=== PATIENT | male | born 1945 | race Caucasian/White ===

== ENCOUNTER 2017-04-07 15:12 | Inpatient (IN) | payer OTHER, BC ==
[~2017-04-07] VITALS: Ht 170.2 cm; Wt 89.3 kg
[~2017-04-07 15:12] MED LIST: ALDACTONE100 MG PO; AMIODARONE HCL200 MG PO; AMOXICILLIN500 MG PO; ATORVASTATIN CA40 MG PO; AVIDOXY100 MG PO; BACTRIM,SEPT1 TABLET PO; CONSTULOSE10 GM/15 M PO; FUROSEMIDE20 MG PO; FUROSEMIDE40 MG PO; GENERLAC10 GM/15 M PO; HYDROCORTISONE30 G2 TP; K-DUR20 MEQ PO; LASIX20 MG PO; LASIX40 MG PO; LEVOFLOXACIN750 MG PO; LEVOTHYROXINE75 MCG PO; LOPRESSOR25 MG PO; METOPROLOL SUCC50 MG PO; MIDODRINE HCL5 MG PO; NADOLOL20 MG PO; OXAYDO5 MG PO; PANTOPRAZOLE SO40 MG PO; SPIRONOLACTONE25 MG PO; ST. JOSEPH ASPI81 MG PO; VITAMIN D32000 UNI1 PO; VITAMIN E400 UNIT PO; XIFAXAN550 MG PO; ZINC30 M1 PO
[2017-04-07 16:09] LABS: ALBUMIN 3.2 g/dL (3.2-4.8)
[2017-04-07 16:10] LABS: CHLORIDE 116 mEq/L (99-109); SODIUM 137 mEq/L (136-147)
[2017-04-07 16:12] LABS: GLUCOSE 104 mg/dL (70-99); TOTAL PROTEIN 6.2 g/dL (6.4-8.3)
[2017-04-07 16:14] LABS: TOTAL BILIRUBIN 1.2 mg/dL (0.0-1.0)
[2017-04-07 16:16] LABS: ALKALINE PHOSPHATASE 177 IU/L (3-129); CREATININE 1.9 mg/dL (0.6-1.3); GFR ESTIMATE (CALCULATED) 37 mL/min/ (58.99-99999)
[2017-04-07 16:17] LABS: UREA NITROGEN (BUN) 45 mg/dL (9-23)
[2017-04-07 16:18] LABS: AST (GOT) 46 IU/L (2-34)
[2017-04-07 16:19] LABS: ALT (GPT) 46 IU/L (3-49); POTASSIUM 6.5 mEq/L (3.7-5.4)
[2017-04-07 16:50] LABS: APPEARANCE CLEAR ((CLEAR)); BILIRUBIN NEGATIVE; BLOOD NEGATIVE; COLOR YELLOW ((YELLOW)); GLUCOSE (STRIP) NEGATIVE; KETONES NEGATIVE; LEUKOCYTES NEGATIVE; NITRITE NEGATIVE; PROTEIN (STRIP) NEGATIVE; SPECIFIC GRAVITY 1.013 (1.000-1.030); UCUL ADDED? NO; UROBILINOGEN 0.2 MG/DL (0.2-1.0)
[2017-04-07] MEDS ORDERED: VITAMIN B12 100MCG PO (17:27)
[2017-04-07] MEDS ORDERED: DIOVAN80 MG PO (17:28)
[2017-04-07] MEDS ORDERED: TRIAMCINOLONE A15 GM TP (17:28)
[2017-04-07 19:17] LABS: URIC ACID 8.7 mg/dL (3.1-9.2)
[2017-04-07 19:51] LABS: ALBUMIN 2.9 g/dL (3.2-4.8)
[2017-04-07 19:52] LABS: CHLORIDE 118 mEq/L (99-109); POTASSIUM 5.7 mEq/L (3.7-5.4); SODIUM 138 mEq/L (136-147)
[2017-04-07 19:53] LABS: GLUCOSE 88 mg/dL (70-99)
[2017-04-07 19:57] LABS: CREATININE 1.8 mg/dL (0.6-1.3); GFR ESTIMATE (CALCULATED) 40 mL/min/ (58.99-99999); PHOSPHORUS 3.5 mg/dL (2.5-4.9)
[2017-04-07 19:58] LABS: UREA NITROGEN (BUN) 43 mg/dL (9-23)
[2017-04-07 20:40] LABS: BASE EXCESS -9.7 mEq/L (-3 to +3); BICARBONATE 13.3 mEq/L (22-26); CARBOXY HGB 1.5 % (0-5); COMMENTS - BLOOD GASES C+A+; FI02 21 %; METHEMOGLOBIN 1.3 % (0-1.5); O2 FLOW 0 L/MIN; PCO2 21 mm Hg (35-45); PO2 117 mm Hg (80-100); SITE RR; pH 7.41 (7.35-7.45)
[2017-04-07 21:18] VITALS: BP 124/61
[2017-04-08 00:28] VITALS: BP 113/62
[2017-04-08 04:16] VITALS: BP 84/52
[2017-04-08 05:40] VITALS: BP 98/52
[2017-04-08 06:05] LABS: HEMATOCRIT 26.7 % (38.0-50.0); MCH 34.9 PG (29.0-34.0); MCHC 33.7 G/DL (30.0-36.0); MCV 103.5 FL (86-99); RBC DIS.WIDTH-CV 13.4 % (11.8-14.6); RED BLOOD COUNT 2.58 M/uL (4.00-5.50); WHITE BLOOD COUNT 2.2 K/uL (4.1-10.2)
[2017-04-08 06:13] LABS: PLATELET COUNT 52 K/uL (156-360)
[2017-04-08 06:29] LABS: CHLORIDE 116 MEQ/L (99-109); CREATININE 1.8 MG/DL (0.6-1.3); GFR ESTIMATE (CALCULATED) 40 mL/min/ (58.99-99999); GLUCOSE 101 mg/dL (70-99); POTASSIUM 4.7 MEQ/L (3.7-5.4); SODIUM 140 MEQ/L (136-147); UREA NITROGEN (BUN) 40 mg/dL (9-23)
[2017-04-08 08:00] VITALS: BP 98/48
[2017-04-08 16:17] LABS: UR CREATININE CONCENTRATION 95.3 MG/DL
[2017-04-08 19:27] VITALS: BP 108/46
[2017-04-08 23:40] VITALS: BP 98/42
[2017-04-09 03:50] VITALS: BP 83/40
[2017-04-09 06:30] LABS: ALBUMIN 2.8 G/DL (3.2-4.8); ALT (GPT) 26 IU/L (3-49); AST (GOT) 31 IU/L (2-34); CHLORIDE 114 MEQ/L (99-109); CREATININE 1.5 MG/DL (0.6-1.3); GFR ESTIMATE (CALCULATED) 49 mL/min/ (58.99-99999); GLUCOSE 87 mg/dL (70-99); MAGNESIUM 1.4 mg/dl (1.3-2.7); PHOSPHORUS 3.3 mg/dL (2.5-4.9); POTASSIUM 4.5 MEQ/L (3.7-5.4); SODIUM 140 MEQ/L (136-147); TOTAL BILIRUBIN 1.4 MG/DL (0.0-1.0); UREA NITROGEN (BUN) 33 mg/dL (9-23)
[2017-04-09 06:52] LABS: ALKALINE PHOSPHATASE 99 IU/L (3-129); TOTAL PROTEIN 4.7 G/DL (6.4-8.3)
[2017-04-09 07:15] LABS: BASOPHIL (%) 0.6 % (0-1); EOSINOPHIL (%) 4.2 % (0-5); EOSINOPHIL COUNT 0.1 K/uL (0-0.3); HEMATOCRIT 24.1 % (38.0-50.0); HEMOGLOBIN 8.3 G/DL (12.5-16.6); LYMPHOCYTE COUNT 0.4 K/uL (1.0-2.8); MCH 35.8 PG (29.0-34.0); MCHC 34.4 G/DL (30.0-36.0); MCV 103.9 FL (86-99); MONOCYTE (%) 13.2 % (3-12); MONOCYTE COUNT 0.2 K/uL (0-0.8); RBC DIS.WIDTH-CV 13.4 % (11.8-14.6); RBC DIS.WIDTH-SD 51.4 % (39-53); RED BLOOD COUNT 2.32 M/uL (4.00-5.50)
[2017-04-09 07:31] LABS: IMM.PLATELET FRACTION 1.4 (1-7); PLAT.SUFFICIENCY DECREASED; PLATELET COUNT 48 K/uL (156-360)
[2017-04-09 07:32] LABS: WHITE BLOOD COUNT 1.7 K/uL (4.1-10.2)
[2017-04-09 08:01] VITALS: BP 90/54
[2017-04-09 09:43] LABS: URIC ACID 8.5 mg/dL (3.1-9.2)
[2017-04-09] MEDS ORDERED: ALDACTONE25 MG PO (10:58)
[2017-04-09] MEDS ORDERED: SOD CITRATE-CI473 ML PO (11:02)
== END 2017-04-09 12:13 | disposition home or self-care (01) | DRG 683 ==
LOC: EME 15:12 → 5SOUTH 18:17 → EDOF 18:17 → ENRESERV 18:27 → 5SOUTH 21:09
PROVIDERS: Emergency Medicine; Hospitalist; Internal Medicine Nephrology
DX: N17.9 Acute kidney failure, unspecified (principal); T50.1X5A Adverse effect of loop [high-ceiling] diuretics, initial encounter; D61.818 Other pancytopenia; I12.9 Hypertensive chronic kidney disease with stage 1 through stage 4 chronic kidney disease, or unspecified chronic kidney disease; E11.22 Type 2 diabetes mellitus with diabetic chronic kidney disease; N18.3 Chronic kidney disease, stage 3 (moderate); E86.9 Volume depletion, unspecified; E87.2 Acidosis; E87.5 Hyperkalemia; T50.0X5A Adverse effect of mineralocorticoids and their antagonists, initial encounter; I48.0 Paroxysmal atrial fibrillation; I25.10 Atherosclerotic heart disease of native coronary artery without angina pectoris; K72.10 Chronic hepatic failure without coma; K74.60 Unspecified cirrhosis of liver; K75.81 Nonalcoholic steatohepatitis (NASH); K76.6 Portal hypertension; D64.9 Anemia, unspecified; D69.6 Thrombocytopenia, unspecified; I95.9 Hypotension, unspecified; R60.0 Localized edema; E03.9 Hypothyroidism, unspecified; E78.5 Hyperlipidemia, unspecified; Z80.8 Family history of malignant neoplasm of other organs or systems; Z68.30 Body mass index [BMI] 30.0-30.9, adult; Z82.49 Family history of ischemic heart disease and other diseases of the circulatory system; Z86.718 Personal history of other venous thrombosis and embolism; Z87.891 Personal history of nicotine dependence; Z95.1 Presence of aortocoronary bypass graft; Z95.3 Presence of xenogenic heart valve; Z76.82 Awaiting organ transplant status
CPT/HCPCS: 36415; 36600; 76770; 80048; 80053; 80069; 81003; 82436; 82570; 82803; 83735; 83930; 83935; 84100; 84133; 84156; 84300; 84550; 85025; 85027; 86038; 86235; 93005; 94640; 99281; 99285; J0610; J7040; J7050; J7070; P9047